=== PATIENT | female | born 1960 | race Caucasian/White ===

== ENCOUNTER 2018-11-19 06:39 | Day surgery (SDC) | payer OTHER ==
[2018-11-19] MEDS ORDERED: SEVOFLURANE 15 MIN (07:00)
[2018-11-19] MEDS ORDERED: SOD CHLORIDE 0.9% 1,000 ML IV (09:00)
[2018-11-19] MEDS ORDERED: FENTAnyl 50 MCG/ML VIAL IV ×2 (12:00)
[2018-11-19] MEDS ORDERED: HYDROmorphONE 1 MG/5 ML IV SYRINGE IV (12:00)
[2018-11-19] MEDS ORDERED: DIPHENHYDRAMINE 50 MG INJ IV (12:00)
[2018-11-19] MEDS ORDERED: PROCHLORPERAZINE 10 MG INJ IV (12:00)
[2018-11-19] MEDS ORDERED: FENTAnyl 50 MCG/ML VIAL (12:07)
[2018-11-19] MEDS ORDERED: PROPOFOL 20 ML (12:07)
[2018-11-19] MEDS ORDERED: MIDAZOLAM 1 MG/ML 2 ML INJ ×2 (12:07→12:19)
[2018-11-19] MEDS ORDERED: LIDOCAINE 2% (SDV) 5 ML INJ (12:07)
[2018-11-19] MEDS ORDERED: FAMOTIDINE 20 MG INJ (12:26)
[2018-11-19] MEDS ORDERED: CEFAZOLIN 1 GM INJ ×2 (12:26)
[2018-11-19] MEDS ORDERED: ONDANSETRON 4 MG INJ (12:26)
[2018-11-19] MEDS ORDERED: DEXAMETHASONE 4 MG/ML 5 ML INJ (12:26)
[2018-11-19] MEDS: CEFAZOLIN 2 GM/50 ML (PMX) 50 ML IVPB (12:28)
[2018-11-19] MEDS: ISOSULFAN BLUE 1% 5 ML INJ SC (12:30)
[2018-11-19] MEDS ORDERED: EPHEDrine SULFATE 50 MG/5 ML SYG (12:40)
[2018-11-19] MEDS ORDERED: HYDROCODONE/APAP (7.5/325) TAB PO (13:30)
[2018-11-19] MEDS: ONDANSETRON 4 MG INJ IV (14:10)
[2018-11-19] MEDS: HYDROmorphONE 1 MG/5 ML IV SYRINGE IV ×3 (14:10→15:01)
[2018-11-19] MEDS: OXYCODONE/ACETAMINOPHEN (5/325) TAB PO (14:25)
[2018-11-19] MEDS: MEPERIDINE 25 MG INJ IV (14:32)
[2018-11-19] MEDS: FENTAnyl 50 MCG/ML VIAL IV (15:00)
== END 2018-11-19 15:50 | disposition home or self-care (01) ==
LOC: SDS 06:39
DX: C50.911 Malignant neoplasm of unspecified site of right female breast (principal)
CPT/HCPCS: 19301; 71045; 88307; 88331